=== PATIENT | female | born 1960 | race Caucasian/White ===

== ENCOUNTER → 2016-12-23 | Day surgery (SDC) | payer MEDICARE ==
[~2016-12-23] VITALS: Ht 154.9 cm; Wt 59.0 kg
[2016-12-23 11:17] VITALS: BP 92/59
[2016-12-23 11:36] VITALS: BP 124/82; BP 92/59
--- NOTE | 2016-12-23 11:46 | Procedure Note ---
Procedure detail Date of procedure: 12/23/16 Anesthesiologist: Alvarez Sebastian Complications: None Pre-procedure diagnosis: Degenerative disease lumbar spine multiple levels. Lumbar radiculopathy symptoms. Post-procedure diagnosis: Same. Indications for procedure: Very pleasant 56-year-old white female that presents for procedure clinic today for her initial lumbar epidural steroid injection L4-5 level. Patient complains of low back pain as well as bilateral hip and leg radiculopathy symptoms. Procedure detail: Procedure: Lumbar epidural steroid injection under fluoroscopy Informed consent was obtained and the risks and benefits of the procedure were explained to the patient. The patient was taken to the procedure room and noninvasive monitors placed, including noninvasive blood pressure cuff and pulse oximeter. The back was viewed using C-arm Fluoroscopy and prepped using Betadine as a cleansing solution and the L4-L5 interspace was palpated. Skin and subcutaneous tissues were anesthetized using lidocaine 1.5% and a 25-gauge needle. After this, an 18-gauge Touhy epidural needle was placed into the L4-L5 interspace and advanced using fluoroscopic guidance and loss of resistance to air until the epidural space was encountered. After confirmation of needle placement in the epidural space, with dye, a solution containing lidocaine 1.5%, 4 mL and Depo-Medrol 80 mg were incrementally injected into the lumbar epidural space. The patient tolerated the procedure well with no complications. The patient was observed in the Pain Clinic and then discharged home neurologically intact. Plan and disposition: Patient was evaluated 10 minutes post procedure. She's doing very well. She'll return to see us in the pain clinic for further evaluation. at [id number]
[2016-12-23 11:51] VITALS: BP 98/67
== END ==
LOC: PM 10:58
PROC: 3E0R3BZ Introduction of Anesthetic Agent into Spinal Canal, Percutaneous Approach (ICD-10-PCS; principal; 2016-12-23)
PROC: 3E0R33Z Introduction of Anti-inflammatory into Spinal Canal, Percutaneous Approach (ICD-10-PCS; 2016-12-23)
DX: M51.16 Intervertebral disc disorders with radiculopathy, lumbar region (principal)